=== PATIENT | female | born 2000 | race Hispanic/Latino ===

== ENCOUNTER 2019-03-03 14:06 | Emergency (ER) | payer OTHER ==
[~2019-03-03] VITALS: Ht 157.5 cm; Wt 54.9 kg
[~2019-03-03 14:06] MED LIST: ZOLOFT50 MG PO
[2019-03-03] MEDS ORDERED: SUBOXONE 8 MG-1 EAC1 SL (14:29)
[2019-03-03] MEDS ORDERED: FLAGYL500 MG PO (15:31)
[2019-03-03] MEDS ORDERED: DOXYCYCLINE HY100 MG PO (15:31)
== END 2019-03-03 16:12 | disposition home or self-care (01) ==
LOC: ED 14:06
DX: N73.9 Female pelvic inflammatory disease, unspecified (principal); F17.200 Nicotine dependence, unspecified, uncomplicated; Z88.8 Allergy status to other drugs, medicaments and biological substances; Z79.899 Other long term (current) drug therapy
CPT/HCPCS: 80053; 81001; 84703; 85025; 87491; 87591; 96372; 99284-25; J0696